=== PATIENT | female | born 1980 | race Hispanic/Latino ===

== ENCOUNTER → 2021-10-03 | Outpatient (CLI) | payer BC | END | disposition home or self-care (01) | LOC: SHCH 13:52 | PROVIDERS: ATTEND Student in an Organized Health Care Education/Training Program | DX: I36.1 Nonrheumatic tricuspid (valve) insufficiency (principal); E66.9 Obesity, unspecified; E78.5 Hyperlipidemia, unspecified | CPT/HCPCS: 93306; 93356 ==